=== PATIENT | male | born 1965 | race African-American/Black ===

== ENCOUNTER 2021-04-08 17:19 | Observation (INO) | payer BC, MEDICAID, SELFPAY ==
[2021-04-08 17:21] VITALS: BP 149/104; PULSE 78; RESP 18; TEMP 36; O2SAT 96; BMI 23.9
--- NOTE | 2021-04-08 17:49 | EDS_ITS ---
HPI History of Present Illness Chief Complaint: Substance Abuse Informant: patient Onset/Context/Timing Onset: Today Context: Gradual Onset Timing: Continuous Worsened by: Nothing Relieved by: Nothing Associated Symptoms Associated Symptoms: Negative for vomiting*, diarrhea*, fever*, rash*, seizure, tremor, palpatations, suicidal ideation and homicidal ideation Narrative Narrative: Patient presents requesting detox from alcohol. Patient states he drinks between 9 and 14 24 ounce beers per day. Patient states he drank 2 shots this morning. Patient states he has been drinking for 6 months. Patient states he has never been through detox before. Patient states his last drink was approximately 10 AM today. Patient denies any suicidal or homicidal ideations. Patient does have a history of depression and anxiety. Patient also admits to marijuana use. [facility] Medical History Depression with anxiety Fixation hardware in leg Home Medications bupropion HCl 150 mg PO DAILY 04/08/21 [History Last Taken Unknown] clonazepam [Klonopin] 1 mg PO QHS 04/08/21 [History Last Taken Unknown] sulfamethoxazole-trimethoprim [Bactrim] 1 tab PO BID 04/08/21 [History Last Taken Unknown] Allergy/AdvReac Type Severity Reaction Status Date / Time No Known Allergies Allergy Verified 04/08/21 17:19 Social History Smoking Status: Never smoker ROS ROS ED Constitutional Constitutional ED: Denies chills or fever(s) Eyes Eyes: Denies blurry vision or change in vision ENT ENT ED: Denies rhinorrhea or sore throat Cardiovascular Cardiovascular: Denies chest pain or palpitations Respiratory/Chest Respiratory/Chest: Reports cough; Denies dyspnea Gastrointestinal Gastrointestinal: Denies nausea or vomiting Genitourinary Genitourinary ED: Denies dysuria or hematuria Musculoskeletal Musculoskeletal: Denies back pain or neck pain Integumentary Denies abscess or rash Neurologic Neurologic: Denies headache(s) or weakness Psychiatric Psychiatric: Reports depression; Denies suicidal ideation or suicidal thoughts Allergic/Immunologic Allergic/Immunologic ED: Denies mouth swelling or urticaria EXAM Physical Exam Const Vital Signs: 04/08/21 17:21 04/08/21 18:05 04/08/21 20:42 Temperature 96.8 F L 97.8 F Temperature Source Temporal Temporal Pulse Rate 78 81 89 Respiratory Rate 18 16 18 Blood Pressure 149/104 H 147/78 H Blood Pressure Mean 119 101 Blood Pressure Source Monitor Blood Pressure Position Semi-Fowlers Blood Pressure Location Right Arm Pulse Ox 96 97 97 Oxygen Delivery Method Room Air Room Air Room Air Positive well nourished and well developed General Appearance ED: well developed HEENT Reports moist mucous membranes Neck supple and no JVD Resp normal respiratory effort and clear to auscultation bilaterally Cardio regular rate, regular rhythm and no murmurs GI normal to inspection, nondistended, normoactive bowel sounds and non-tender Palpation: soft Extremity normal to inspection Extremity Narrative: There is external fixation hardware noted in the right lower leg and ankle area. There is no discharge or drainage. There is no erythema or warmth. General Extremety ED: Negative for edema or tenderness General Extremity: Negative for edema Neuro oriented x3, CN's II-XII intact bilaterally and no sensory deficits noted Sensorium / Orientation: alert Motor Exam: strength 5/5 throughout Psych mental status grossly normal Skin no rashes or lesions noted MDM MDM MDM Narrative Medical decision making narrative: CBC was within normal limits. Basic metabolic profile was normal. Urine tox urine was positive for cannabinoids. Serum alcohol level was normal. Case discussed with the hospitalist. He will admit the patient to his service. Patient understands and is agreeable with the plan. All questions were answered. Lab Data Attestation: I reviewed the patient's lab results. Labs: Laboratory Results - last 24 hr 04/08/21 04/08/21 04/08/21 17:45 18:00 18:00 WBC 8.0 RBC 5.43 Hgb 13.7 Hct 42.5 MCV 78.3 L MCH 25.2 L MCHC 32.2 RDW Std Deviation 44.1 H RDW Coeff of Fernando 15.8 H Plt Count 381 MPV 9.1 Immature Gran % (Auto) 0.400 Neut % (Auto) 61.2 Lymph % (Auto) 25.7 [place] % (Auto) 11.9 H Eos % (Auto) 0.1 Baso % (Auto) 0.7 Absolute Neuts (auto) 4.9 Absolute Lymphs (auto) 2.07 Nucleated RBC % 0 Sodium 140 Potassium 3.8 Chloride 105 Carbon Dioxide 28.0 Anion Gap 7 BUN 4 L Creatinine 0.82 Estim Creat Clear Calc 102.98 Est GFR (MDRD) Af Amer 126 Est GFR (MDRD) Non-Af 104 BUN/Creatinine Ratio 4.9 L Glucose 90 Calcium 9.0 Urine Opiates Screen NEGATIVE Urine Methadone Screen NEGATIVE Ur Barbiturates Screen NEGATIVE Ur Phencyclidine Scrn NEGATIVE Ur Amphetamines Screen NEGATIVE U Methamphetamin-MDMA NEGATIVE U Benzodiazepines Scrn NEGATIVE Urine Cocaine Screen NEGATIVE U Cannabinoids Screen POSITIVE H Ur Drug Screen Comment Ethyl Alcohol 04/08/21 18:00 WBC RBC Hgb Hct MCV MCH MCHC RDW Std Deviation RDW Coeff of Fernando Plt Count MPV Immature Gran % (Auto) Neut % (Auto) Lymph % (Auto) [place] % (Auto) Eos % (Auto) Baso % (Auto) Absolute Neuts (auto) Absolute Lymphs (auto) Nucleated RBC % Sodium Potassium Chloride Carbon Dioxide Anion Gap BUN Creatinine Estim Creat Clear Calc Est GFR (MDRD) Af Amer Est GFR (MDRD) Non-Af BUN/Creatinine Ratio Glucose Calcium Urine Opiates Screen Urine Methadone Screen Ur Barbiturates Screen Ur Phencyclidine Scrn Ur Amphetamines Screen U Methamphetamin-MDMA U Benzodiazepines Scrn Urine Cocaine Screen U Cannabinoids Screen Ur Drug Screen Comment Ethyl Alcohol 7.0 Treatment and Re-Evaluation Vital Sign Attestation:: Vital signs were reviewed prior to admission. They are stable. Discharge Plan Dx/Rx/DC Orders Clinical Impression: Alcohol abuse Disposition Disposition: Acute Care Hospital [facility]
[2021-04-08 18:05] VITALS: BP 147/78; PULSE 81; RESP 16; TEMP 36.6; O2SAT 97
[2021-04-08 18:13] LABS: Absolute Lymphocyte Count 2.07 X10^3/uL (0.83-4.51); Absolute Neutrophil Count 4.9 X10^3/uL (2.0-7.7); Basophil# 0.06 X10^3/uL; Basophil% 0.7 % (0-1); Eosinophil# 0.01 X10^3/uL; Eosinophils% 0.1 % (0-5); Hematocrit 42.5 % (40-54); Hemoglobin 13.7 g/dL (13.0-16.5); Lymphocyte # 2.07 X10^3/ul (0.83-4.51); Lymphocyte % 25.7 % (19-41); Mean Corp Hgb Conc 32.2 g/dL (32-36); Mean Corpuscular Hgb 25.2 pg (27.0-32.0); Mean Corpuscular Volume 78.3 fL (80-94); Mean Platelet Vol. 9.1 fl (6.2-12.0); Monocyte# 0.96 X10^3/uL; Monocyte% 11.9 % (0-10); NRBC Flagged by Analyzer 0 % (0-5); Neutrophil # 4.91 X10^3/uL (2.7-7.7); Neutrophil % 61.2 % (47-70); Platelet Count 381 K/mm3 (150-450); RBC Distribution Width CV 15.8 % (11.6-14.6); RBC Distribution Width SD 44.1 fl (35.1-43.9); Red Blood Count 5.43 M/mm3 (4.6-6.2)
[2021-04-08 18:29] LABS: Anion Gap 7 (5-15); BUN 4 mg/dL (7-18); BUN/Creat Ratio 4.9 RATIO (10-20); Chloride 105 mmol/L (98-107); Creatinine, Serum 0.82 mg/dL (0.70-1.30); EST Glomerular Filtration Rate 104 mL/min (>60); Est Glom Filt Rate - Afr Amer 126 mL/min (>60); Estimated Creatinine Clearance 102.98 ml/min; Glucose 90 mg/dL (74-106); Potassium 3.8 mmol/L (3.5-5.1); Sodium Level 140 mmol/L (136-145)
[2021-04-08 18:31] LABS: Amphetamine Urine VISTA NEGATIVE (<1000 ng/mL); Barbiturate Urine VISTA NEGATIVE (< 200 ng/mL); Benzodiazepine Urine VISTA NEGATIVE (< 200 ng/mL); Cocaine Urine VISTA NEGATIVE (< 300 ng/mL); Ecstacy Urine VISTA NEGATIVE (< 500 ng/mL); Methadone Urine VISTA NEGATIVE (< 300 ng/mL); PCP Urine VISTA NEGATIVE (< 25 ng/mL); THC Urine VISTA POSITIVE (< 50 ng/mL); Vista UDS pH Range 6
--- NOTE | 2021-04-08 19:50 | CM.ED ---
SOCIAL WORK Referral Source: Dr. Lind Reason for Consult: Substance Abuse- requesting detox from alcohol Patient presents to ER for detox from alcohol. Patient reports drinks 9-14 24oz beers/day. Patient reports last drink this morning, 2 shots and an Old Turkish. Patient reports has met with [facility] in the past. Patient hoping to get into [facility]. Patient states gave up apartment a few days ago due to the inability to do the 20 steps to get into apartment. Patient reports is currently homeless. Patient reports history of marijuana and cocaine 3 days ago. Patient states while in the hospital would like to get the COVID-[address] Lind updated on the above. Plan: Hospitalist notified Syl Gibson, APPLIED MATHEMATICIAN, CATALYST UNIT OPERATOR
--- NOTE | 2021-04-08 20:17 | HP.PCM.HOS_ITS ---
HPI - General General Date of Admission: 04/08/21 HPI Narrative REZA MALIN, is a 55 M with a significant history of depression;; tobacco abuse; marijuana abuse; cocaine abuse; alcoholism and wheel chair bound who presents to the emergency department with a desire for alcohol detoxification. Reportedly he has been drinking for about 4 years. He drinks about 9 of 24 ounces of beer per day. Also he drinks some butter scotch, wine and gin. Last time he drank was several hours before presentation. At that time he drank 2 of butter wine scotch and old maori. At least he has been to to centers for rehabilitation. [facility] Medical History Depression with anxiety Fixation hardware in leg Sleep apnea Vision loss of right eye Home Medications bupropion HCl 150 mg PO DAILY 04/08/21 [History Last Taken Unknown] clonazepam [Klonopin] 1 mg PO QHS 04/08/21 [History Last Taken Unknown] sulfamethoxazole-trimethoprim [Bactrim] 1 tab PO BID 04/08/21 [History Last Taken Unknown] Allergy/AdvReac Type Severity Reaction Status Date / Time No Known Allergies Allergy Verified 04/08/21 17:19 Surgical History History of appendectomy History of cholecystectomy Social History (Updated 04/09/21 @ 02:[address] Jorge Mcallister MD) Smoking Status: Current every day smoker substance use type: marijuana and crack/cocaine ROS ROS Narrative Constitutional: Denies fever, chills, fatigue, anorexia and change in weight Eyes: Denies blurry vision, change in eye color, change in vision, discharge from eye(s), double vision, erythema, eye pain, loss of vision or other HEENT: Denies abnormal hearing, dysphagia, ear pain, epistaxis, headache(s), hearing loss, nasal congestion, nasal discharge, post nasal drip, sinus pressu re, sore throat or other Cardiovascular: Denies chest pain or palpitations. Denies dyspnea on exertion, orthopnea and paroxysmal nocturnal dyspnea Respiratory/Chest: Denies cough, excessive phlegm production, shortness of breath with exertion and wheezing Gastrointestinal: Denies abdominal pain, coffee ground emesis, constipation, diarrhea, dyspepsia, hematemesis, hematochezia, loose stools, melena, nausea, vomiting or other Genitourinary: Denies burning urination, difficulty urinating, dysuria, hematuria, nocturia, urinary frequency, urinary hesitancy, urinary incontinence, urinary urgency or other Musculoskeletal: Wheelchair-bound. Denies back pain, myalgias, neck pain or other Neurologic: Denies abnormal gait, abnormal speech, confusion, disequilibrium, dizziness, focal weakness, headache(s), numbness, paresthesias, seizure-like activity, seizures, syncope, tingling, tremor(s) or other Psychiatric: Denies anxiety, depression, homicidal ideation, suicidal ideation or other Endocrinology: Denies change in body appearance, cold intolerance, excessive sweating, heat intolerance, polydipsia, polyuria or other Hematologic/Lymphatic: Denies anemia, easy bleeding, easy bruising, lymphadenopathy or other Integumentary: Denies rashes Allergic/Immunologic: Denies rhinitis, hives, eczema, asthma or other Vital Signs Vital Signs Vital Signs: 04/08/21 17:21 04/08/21 18:05 Temperature 96.8 F L 97.8 F Temperature Source Temporal Temporal Pulse Rate 78 81 Respiratory Rate 18 16 Blood Pressure 149/104 H 147/78 H Blood Pressure Mean 119 101 Blood Pressure Source Monitor Blood Pressure Position Semi-Fowlers Blood Pressure Location Right Arm Pulse Ox 96 97 Oxygen Delivery Method Room Air Room Air Weight Weight: 73.482 kg Body Mass Index (BMI) 23.9 Physical Exam Narrative Physical exam: General: Well-nourished, well-developed. Head: Normocephalic, atraumatic, no tenderness Eyes: PERRLA, EOMI ENT, no trauma, moist mucous membranes, no rhinorrhea. Poor dentition. Neck: Nontender, full range of motion, no spinal tenderness, deformities, step- off CVS: Regular rate and rhythm. S1-S2 present. No murmur, gallop or rub. Respiratory : clear to auscultation bilaterally, chest wall nontender, no wheezing Abdomen: Soft, nontender, nondistended, normal bowel sounds, no masses : Deferred Back: Nontender, no CVA tenderness, no midline spinal tenderness, deformities, step-offs Extremities: Right leg in Hallo brace. Strength in right leg 4 out of 5. Strength in left leg 5 out of 5. Skin: Normal color, no trauma, abrasions Neuro: Alert, oriented, cranial nerves II through XII grossly intact. Psychiatry: Normal mood. Normal affect. Not depressed. Not anxious. Results Lab / Micro Data Result Diagrams: 04/08/21 18:00 04/08/21 18:00 Labs: Laboratory Results - last 24 hr 04/08/21 17:45: Urine Opiates Screen NEGATIVE, Urine Methadone Screen NEGATIVE, Ur Barbiturates Screen NEGATIVE, Ur Phencyclidine Scrn NEGATIVE, Ur Amphetamines Screen NEGATIVE, U Methamphetamin-MDMA NEGATIVE, U Benzodiazepines Scrn NEGATIVE, Urine Cocaine Screen NEGATIVE, U Cannabinoids Screen POSITIVE H, Ur Drug Screen Comment 04/08/21 18:00: WBC 8.0, RBC 5.43, Hgb 13.7, Hct 42.5, MCV 78.3 L, MCH 25.2 L, MCHC 32.2, RDW Std Deviation 44.1 H, RDW Coeff of Fernando 15.8 H, Plt Count 381, MPV 9.1, Immature Gran % (Auto) 0.400, Neut % (Auto) 61.2, Lymph % (Auto) 25.7, [place] % (Auto) 11.9 H, Eos % (Auto) 0.1, Baso % (Auto) 0.7, Absolute Neuts (auto) 4.9, Absolute Lymphs (auto) 2.07, Nucleated RBC % 0 04/08/21 18:00: Sodium 140, Potassium 3.8, Chloride 105, Carbon Dioxide 28.0, Anion Gap 7, BUN 4 L, Creatinine 0.82, Estim Creat Clear Calc 102.98, Est GFR (MDRD) Af Amer 126, Est GFR (MDRD) Non-Af 104, BUN/Creatinine Ratio 4.9 L, Glucose 90, Calcium 9.0 04/08/21 18:00: Ethyl Alcohol 7.0 Assessment & Plan Assessment/Plan (1) Alcohol abuse: (2) Cocaine abuse: (3) Marijuana abuse: (4) Depression: QUALIFIERS: Active/Remission status: currently active Depression Type: major depressive disorder Major depression episode severity: unspecified Major depression recurrence: unspecified whether recurrent Qualified Code(s): F32.9 - Major depressive disorder, single episode, unspecified PLAN: Alcohol dependence and desire for detoxification Patient be started on phenobarbital and other adjunctive medications: Gabapentin as needed; dicyclomine as needed; Vistaril as needed; Imodium as needed; trazodone as needed; Zofran as needed; scheduled thiamine; and schedule folic acid. Monitor CIWA score Tobacco abuse Counseled Nicotine patch prescribed. Cocaine and marijuana abuse Counseled. Chronic infection of right leg Bactrim continued. Depression Bupropion continued. DVT prophylaxis Subcutaneous Lovenox ordered Charges/Coding Visit Charges Inpatient E&M: 79560 Init Hosp L2
[2021-04-08 20:42] VITALS: PULSE 89; RESP 18; O2SAT 97
--- NOTE | 2021-04-08 21:05 | PCS.PANDOC ---
PANDEMIC DOCUMENTATION INITIATED: Date: 12/13/2020 Time: 190
[2021-04-08 21:12] VITALS: BP 147/78; PULSE 89; RESP 18; TEMP 36.6; O2SAT 97
[2021-04-08 21:36] VITALS: BMI 23.1
--- NOTE | 2021-04-08 21:36 | PCS.PANDOC ---
PANDEMIC DOCUMENTATION INITIATED: Date: 04/08/21 Time: 2135
[2021-04-08 21:41] VITALS: BP 150/84; PULSE 76; RESP 18; TEMP 36.6; O2SAT 97
[2021-04-08] MEDS: Phenobarbital 32.4 MG Tablet PO (22:36)
[2021-04-09 02:38] VITALS: BP 144/97; PULSE 66; RESP 16; TEMP 36.9; O2SAT 100
[2021-04-09] MEDS: Phenobarbital 32.4 MG Tablet PO ×6 (02:43→22:41)
[2021-04-09 06:00] VITALS: BP 147/93; PULSE 74; RESP 16; TEMP 37; O2SAT 98
[2021-04-09 10:00] VITALS: BP 138/95; PULSE 76; RESP 18; TEMP 36.6; O2SAT 99
[2021-04-09] MEDS: Smz/Tmp Ds Tablet 1 TABLET PO ×2 (10:04→18:11)
[2021-04-09] MEDS: Folic Acid 1 MG Tablet PO (10:04)
[2021-04-09] MEDS: Enoxaparin 40 MG/0.4 ML Syringe SC (10:04)
[2021-04-09] MEDS: Thiamine Hydrochloride 100 MG Tablet PO (10:04)
--- NOTE | 2021-04-09 11:02 | NURSING ---
sherif valles missing from pt stock and none in avccudose
--- NOTE | 2021-04-09 12:13 | PN.HOSP_ITS ---
Documented by User: Raghavendra LEROY 04/09/21 12:23 Subjective Subjective Patient is a 55-year-old male comfortably resting in bed, alert and orient x3. Patient denies any seizure-like activity, tremors or auditory/visual hallucinations. Denies development of any new symptoms overnight. Does not appear in acute distress. Objective Data Objective Data Vital Signs: Vital Signs Temp Pulse Resp BP Pulse Ox 97.9 F 76 18 138/95 H 99 04/09/21 10:00 04/09/21 10:00 04/09/21 10:00 04/09/21 10:00 04/09/21 10:00 Oxygen Delivery Method Room Air Weight: 156 lb 1.396 oz Body Mass Index (BMI) 23.1 Intake & Output: Intake and Output for Last 24 Hours 04/07/21 04/08/21 04/09/21 23:59 23:59 23:59 Intake Total 1000 / 1000 Balance 1000 / 1000 Lab / Micro Data Result Diagrams: 04/08/21 18:00 04/08/21 18:00 Labs: Laboratory Results - last 24 hr 04/08/21 17:45: Urine Opiates Screen NEGATIVE, Urine Methadone Screen NEGATIVE, Ur Barbiturates Screen NEGATIVE, Ur Phencyclidine Scrn NEGATIVE, Ur Amphetamines Screen NEGATIVE, U Methamphetamin-MDMA NEGATIVE, U Benzodiazepines Scrn NEGATIVE, Urine Cocaine Screen NEGATIVE, U Cannabinoids Screen POSITIVE H, Ur Drug Screen Comment 04/08/21 18:00: WBC 8.0, RBC 5.43, Hgb 13.7, Hct 42.5, MCV 78.3 L, MCH 25.2 L, MCHC 32.2, RDW Std Deviation 44.1 H, RDW Coeff of Fernando 15.8 H, Plt Count 381, MPV 9.1, Immature Gran % (Auto) 0.400, Neut % (Auto) 61.2, Lymph % (Auto) 25.7, [place] % (Auto) 11.9 H, Eos % (Auto) 0.1, Baso % (Auto) 0.7, Absolute Neuts (auto) 4.9, Absolute Lymphs (auto) 2.07, Nucleated RBC % 0 04/08/21 18:00: Sodium 140, Potassium 3.8, Chloride 105, Carbon Dioxide 28.0, Anion Gap 7, BUN 4 L, Creatinine 0.82, Estim Creat Clear Calc 102.98, Est GFR (MDRD) Af Amer 126, Est GFR (MDRD) Non-Af 104, BUN/Creatinine Ratio 4.9 L, Glucose 90, Calcium 9.0 04/08/21 18:00: Ethyl Alcohol 7.0 Physical Exam Const alert, oriented x3 and no apparent distress HEENT head/scalp atraumatic and moist oral mucous membranes Head and Scalp: normocephalic Eyes PERRL, EOMs intact bilaterally and conjunctivae normal Neck no lymphadenopathy, supple and no JVD Resp normal respiratory effort, no retractions, no use of accessory muscles and clear to auscultation bilaterally Cardio regular rate, regular rhythm, no murmurs and no JVD GI normal to inspection, nondistended, normoactive bowel sounds, soft to palpation and non-tender Extremity normal to inspection, full ROM and no clubbing, cyanosis or edema Extremity Narrative: RLE in halo brace. Skin no rashes or lesions noted, no wounds, skin turgor normal and no jaundice Neuro CN's II-XII intact bilaterally Psych affect normal Assessment & Plan Assessment/Plan (1) Alcohol abuse: (2) Cocaine abuse: (3) Depression: QUALIFIERS: Active/Remission status: currently active Depression Type: major depressive disorder Major depression episode severity: unspecified Major depression recurrence: unspecified whether recurrent Qualified Code(s): F32.9 - Major depressive disorder, single episode, unspecified PLAN: Day 1 Discharge planning: Patient to discharge home when medically ready 1) alcohol abuse/medical stabilization for detoxification Patient status is stable, patient does not complain of nor does he display any signs of withdrawal to include tremors, visual hallucinations or seizures. Most recent CIWA score is 0. We will continue patient on phenobarbital and other as needed medications. 2) tobacco abuse Cessation recommended, continue nicotine patch. 3) Chronic infection of right leg Halo brace on RLE status post fall with fracture. Vital signs stable and patient is afebrile. CBC is unremarkable. Continue Bactrim. 4) depression Continue bupropion. DVT prophylaxis - Lovenox Patient seen by Raghavendra Duke PA-C, under the supervision of Dr. Tom. Documented by User: Dr. Jovan Tom DO 04/09/21 16:17 Objective Data Lab / Micro Data Result Diagrams: 04/08/21 18:00 04/08/21 18:00 Charges/Coding Addendum Addendum: Patient was seen and examined independently of Raghavendra Duke, he compl ains of a cough, he denies any tremor or anxiety at this time. On examination he appeared in good health and spirits. Vital signs as documented. Skin warm and dry and without overt rashes. Neck without JVD, neck was supple, trachea midline, thyroid was normal. Lungs clear bilaterally, normal air movement was noted. Heart exam notable for regular rhythm, normal sounds and absence of murmurs, rubs or gallops. Abdomen unremarkable and without evidence of organomegaly, masses, or abdominal aortic enlargement. Bowel sounds are present, abdomen is not distended. Extremities-there is an external fixator device noted over the patient's right lower leg. Neuro: Cranial nerves II through XII are grossly intact, no focal motor deficits were noted, sensation to light touch and pinprick intact, motor exam 5/5 throughout. Psych: Patient is alert and oriented x3, he does not appear anxious or depressed, he does not appear agitated. I have reviewed Raghavendra Duke's progress note including his medical assessment and plan of care and endorse it. Visit Charges Inpatient E&M: 68726 Subs Hosp L2
[2021-04-09] MEDS: buPROPion (SR) 150 MG Tablet.SA PO (14:18)
[2021-04-09 14:19] VITALS: BP 137/74; PULSE 72; RESP 18; O2SAT 100
[2021-04-09 18:08] VITALS: BP 139/77; PULSE 74; RESP 18; TEMP 36.6; O2SAT 98
[2021-04-09] MEDS: Acetaminophen 325 MG Tablet 650 MG PO (18:11)
[2021-04-09] MEDS: guaiFENesin Dm 10 ML UDC PO (18:11)
[2021-04-09 23:42] VITALS: BP 130/79; PULSE 77; RESP 18; TEMP 37.2; O2SAT 97
[2021-04-10] MEDS: guaiFENesin Dm 10 ML UDC PO ×3 (00:52→23:02)
[2021-04-10] MEDS: Acetaminophen 325 MG Tablet 650 MG PO ×4 (00:53→18:18)
[2021-04-10] MEDS: Phenobarbital 32.4 MG Tablet PO ×6 (03:10→23:02)
[2021-04-10 03:14] VITALS: BP 138/93; PULSE 64; RESP 16; TEMP 36.5; O2SAT 98
[2021-04-10 10:32] VITALS: BP 127/96; PULSE 59; RESP 18; TEMP 36.6; O2SAT 97
[2021-04-10] MEDS: buPROPion (SR) 150 MG Tablet.SA PO (10:35)
[2021-04-10] MEDS: Thiamine Hydrochloride 100 MG Tablet PO (10:35)
[2021-04-10] MEDS: Smz/Tmp Ds Tablet 1 TABLET PO ×2 (10:35→18:18)
[2021-04-10] MEDS: Folic Acid 1 MG Tablet PO (10:35)
[2021-04-10] MEDS: Enoxaparin 40 MG/0.4 ML Syringe SC (10:36)
--- NOTE | 2021-04-10 10:43 | PN.HOSP_ITS ---
Documented by User: Raghavendra LEROY 04/10/21 10:49 Subjective Subjective Patient is a 55-year-old male comfortably resting in bed, alert and orient x3. Patient denies development of any alcohol withdrawal symptoms to include visual hallucinations, tremors or seizure. Does not appear in acute distress. Objective Data Objective Data Vital Signs: Vital Signs Temp Pulse Resp BP Pulse Ox 97.9 F 59 L 18 127/96 H 97 04/10/21 10:32 04/10/21 10:32 04/10/21 10:32 04/10/21 10:32 04/10/21 10:32 Oxygen Delivery Method Room Air Weight: 156 lb 1.396 oz Body Mass Index (BMI) 23.1 Intake & Output: Intake and Output for Last 24 Hours 04/08/21 04/09/21 04/10/21 23:59 23:59 23:59 Intake Total 1000 / 1000 Balance 1000 / 1000 Lab / Micro Data Result Diagrams: 04/08/21 18:00 04/08/21 18:00 Physical Exam Const alert, oriented x3 and no apparent distress HEENT head/scalp atraumatic and moist oral mucous membranes Head and Scalp: normocephalic Eyes PERRL, EOMs intact bilaterally and conjunctivae normal Neck no lymphadenopathy, supple and no JVD Resp normal respiratory effort, no retractions, no use of accessory muscles and clear to auscultation bilaterally Cardio regular rate, regular rhythm, no murmurs and no JVD GI normal to inspection, nondistended, normoactive bowel sounds, soft to palpation and non-tender Extremity normal to inspection, full ROM and no clubbing, cyanosis or edema Skin no rashes or lesions noted, no wounds, skin turgor normal and no jaundice Neuro CN's II-XII intact bilaterally Psych affect normal Assessment & Plan Assessment/Plan (1) Alcohol abuse: PLAN: Day 2 Discharge planning: Patient to discharge home when medically ready 1) alcohol abuse/medical stabilization for detoxification Patient status is stable, patient does not complain of nor does he display any signs of withdrawal to include tremors, visual hallucinations or seizures. Most recent CIWA score is 2. We will continue patient on phenobarbital and other as needed medications. 2) tobacco abuse Cessation recommended, continue nicotine patch. 3) Chronic infection of right leg Halo brace on RLE status post fall with fracture. Vital signs stable and patient is afebrile. CBC is unremarkable. Continue Bactrim. 4) depression Continue bupropion. DVT prophylaxis - Lovenox Patient seen by Raghavendra Duke PA-C, under the supervision of Dr. Tom. Documented by User: Dr. Jovan Tom, DO 04/10/21 17:06 Objective Data Lab / Micro Data Result Diagrams: 04/08/21 18:00 04/08/21 18:00 Charges/Coding Addendum Addendum: Patient was seen and examined today independently of Raghavendra Duke, patient does not complain of any anxiety, tremors, muscle pain, or abdominal cramping. On examination he appeared in good health and spirits. Vital signs as d ocumented. Skin warm and dry and without overt rashes. Neck without JVD, neck was supple, trachea midline, thyroid was normal. Lungs clear bilaterally, normal air movement was noted. Heart exam notable for regular rhythm, normal sounds and absence of murmurs, rubs or gallops. Abdomen unremarkable and without evidence of organomegaly, masses, or abdominal aortic enlargement. Bowel sounds are present, abdomen is not distended. Extremities nonedematous, no cyanosis was noted, no clubbing was noted. There is an external fixator present over the patient's right lower leg. Neuro: Cranial nerves II through XII are grossly intact, no focal motor deficits were noted, sensation to light touch and pinprick intact, motor exam 5/5 throughout. Psych: Patient is alert and oriented x3, he does not appear anxious or depressed, he does not appear agitated. I have reviewed Raghavendra Duke's progress note including his medical assessment and plan of care and endorse it. Visit Charges Inpatient E&M: 99472 Subs Hosp L2
--- NOTE | 2021-04-10 11:25 | ADDICTION ---
This policy writer typist met with PT to conduct ASAM, MSE, AUDIT, DUDIT assessments and to plan for d/c. PT A+Ox4 and participated actively. All assessments completed, faxed to [facility] and placed in PT's chart. PT plans to f/u with [facility] for residential treatment and follow-up counseling services if approved. PT did indicate a need for transportation post d/c from [facility]. [facility] will transport once approved.
[2021-04-10 14:01] VITALS: BP 128/73; PULSE 71; RESP 16; TEMP 36.8; O2SAT 98
[2021-04-10 18:22] VITALS: BP 122/74; PULSE 72; RESP 18; TEMP 36.5; O2SAT 98
--- NOTE | 2021-04-10 21:00 | NURSING ---
Received call from [facility]. It was requested that case management reach out to [facility] tomorrow, 04/11/21, regarding bed availability. (Alex @ [phone])
[2021-04-10 23:35] VITALS: BP 125/75; PULSE 67; RESP 18; TEMP 36.6; O2SAT 98
[2021-04-11] MEDS: Acetaminophen 325 MG Tablet 650 MG PO ×3 (00:06→13:15)
[2021-04-11] MEDS: Phenobarbital 32.4 MG Tablet PO ×4 (02:23→17:52)
[2021-04-11 05:00] VITALS: BP 129/82; PULSE 65; RESP 16; TEMP 36.3; O2SAT 96
[2021-04-11 07:32] VITALS: BP 122/82; PULSE 61; RESP 16; TEMP 36.6; O2SAT 99
--- NOTE | 2021-04-11 09:42 | PCM.DC ---
Discharge Instructions Diet Discharge Diet: No restrictions Activity Discharge Activity: Return to Normal Activity Weight Bearing Status: Weight bearing as tolerated Dressing / Incision Call your doctor if you observe: Fever of 101 or Higher, Numbness or Tingling, Shortness of breath, Dizziness, Chest pain, Increased palpitations (irregular heartbeat) and Calf discomfort Follow Up Care Please Follow Up With: Primary care provider When: Within the next two weeks. Test Results: Test results from this visit will be discussed in further detail at your follow-up appointment, if applicable. Discharge Plan Admission Admit Date/Time: 04/08/21 20:31 Primary Reason for Your Visit: Alcohol Detox Attending Provider: Marie Martin Discharge Orders/Prescriptions Prescriptions: Continued bupropion HCl 150 mg Tablet Sustained-Release 12 Hr 150 mg PO DAILY RF: 0 sulfamethoxazole-trimethoprim [Bactrim] 400-80 mg Tablet 1 tab PO BID RF: 0 clonazepam [Klonopin] 1 mg Tablet 1 mg PO QHS RF: 0 Referrals / Follow Up: ADEEL BOSS [Other] - Within 2 Weeks ADEEL BOSS [Other] Disposition Disposition (needs filled in before D/C Order can be placed): Home, Self Care
[2021-04-11] MEDS: Thiamine Hydrochloride 100 MG Tablet PO (10:13)
[2021-04-11] MEDS: buPROPion (SR) 150 MG Tablet.SA PO (10:13)
[2021-04-11] MEDS: Folic Acid 1 MG Tablet PO (10:13)
[2021-04-11] MEDS: Enoxaparin 40 MG/0.4 ML Syringe SC (10:14)
--- NOTE | 2021-04-11 10:18 | ADDICTION ---
PT has been approved for [facility] in [place]. They will provide transportation tomorrow morning at 10am. They patrick call [employer] [facility] once arrived.
--- NOTE | 2021-04-11 11:21 | PN.HOSP_ITS ---
Documented by User: Raghavendra LEROY 04/11/21 11:27 Subjective Subjective Patient is a 55-year-old male comfortably resting in bed, alert and orient x3. Patient denies development of any alcohol withdrawal symptoms to include visual hallucinations, tremors or seizure. Does not appear in acute distress. Objective Data Objective Data Vital Signs: Vital Signs Temp Pulse Resp BP Pulse Ox 97.9 F 61 16 122/82 H 99 04/11/21 07:32 04/11/21 07:32 04/11/21 07:32 04/11/21 07:32 04/11/21 07:32 Oxygen Delivery Method Room Air Weight: 156 lb 1.396 oz Body Mass Index (BMI) 23.1 Intake & Output: Intake and Output for Last 24 Hours 04/09/21 04/10/21 04/11/21 23:59 23:59 23:59 Intake Total 1000 / 1000 Balance 1000 / 1000 Lab / Micro Data Result Diagrams: 04/08/21 18:00 04/08/21 18:00 Physical Exam Const alert, oriented x3 and no apparent distress HEENT head/scalp atraumatic, moist oral mucous membranes and oropharynx normal Head and Scalp: normocephalic Eyes PERRL, EOMs intact bilaterally and conjunctivae normal Neck no lymphadenopathy, supple and no JVD Resp normal respiratory effort, no retractions, no use of accessory muscles and clear to auscultation bilaterally Cardio regular rate, regular rhythm, no murmurs and no JVD GI normal to inspection, nondistended, normoactive bowel sounds, soft to palpation and non-tender Extremity normal to inspection, full ROM and no clubbing, cyanosis or edema Skin no rashes or lesions noted, no wounds and skin turgor normal Neuro CN's II-XII intact bilaterally Psych affect normal Assessment & Plan Assessment/Plan (1) Alcohol abuse: PLAN: Day 3 Discharge planning: Patient was supposed to discharge today, however already has inpatient addiction services scheduled at [facility] for 04/12. Patient will be discharged tomorrow. 1) alcohol abuse/medical stabilization for detoxification Patient status is stable, patient does not complain of nor does he display any signs of withdrawal to include tremors, visual hallucinations or seizures. Most recent CIWA score is 0. We will continue patient on phenobarbital and other as needed medications. 2) tobacco abuse Cessation recommended, continue nicotine patch. 3) Chronic infection of right leg Halo brace on RLE status post fall with fracture. Vital signs stable and patient is afebrile. CBC is unremarkable. Continue Bactrim. 4) depression Continue bupropion. DVT prophylaxis - Lovenox Patient seen by Raghavendra Duke PA-C, under the supervision of Dr. Martin. Documented by User: Dr. Marie Martin MD 04/11/21 13:51 Objective Data Lab / Micro Data Result Diagrams: 04/08/21 18:00 04/08/21 18:00 Charges/Coding Addendum Addendum: Patient seen by Raghavendra Duke PA-C under my supervision Patient seen and examined. He has no complaints today and review of systems otherwise negative. Plan was to discharge patient today but his rehab facility will not have a bed for him until tomorrow. He has remained hemodynamically stable. O/E: Const alert, oriented x3 and no apparent distress HEENT head/scalp atraumatic, moist oral mucous membranes and oropharynx normal Head and Scalp: normocephalic Eyes PERRL, EOMs intact bilaterally and conjunctivae normal Neck no lymphadenopathy, supple and no JVD Resp normal respiratory effort, no retractions, no use of accessory muscles and clear to auscultation bilaterally Cardio regular rate, regular rhythm, no murmurs and no JVD GI normal to inspection, nondistended, normoactive bowel sounds, soft to palpation and non-tender Extremity external fixator over RLE Skin no rashes or lesions noted, no wounds and skin turgor normal Neuro CN's II-XII intact bilaterally Psych affect normal Plan is to keep patient until tomorrow he can be discharged to his substance abuse rehab facility. Patient not having any symptoms of withdrawal. Rest as per Raghavendra Duke PA-C's note which I reviewed and endorsed. Visit Charges Inpatient E&M: 61332 Subs Hosp L2
[2021-04-11] MEDS: hydrOXYzine PAM 25 MG Capsule 50 MG PO ×2 (11:32→22:09)
[2021-04-11] MEDS: Smz/Tmp Ds Tablet 1 TABLET PO ×2 (13:16→22:09)
[2021-04-11 14:28] VITALS: BP 119/83; PULSE 65; RESP 20; TEMP 36.8; O2SAT 100
--- NOTE | 2021-04-11 16:12 | CHAPLAIN ---
Type of Pastoral Visit _x__ Initial Visit ___ Follow-up Visit ___ On-call Visit ___ General Patient Visit ___ Spiritual Assessment ___ Family Conference ___ Bereavement ___ Rapid Response ___ Code Blue ___ Other (describe below) Pastoral Care Referral From _x__ Patient ___ Family ___ Nurse ___ Physician ___ Form Grader ___ Scientologist ___ Other (describe below) Sacrament/Intervention _x__ Active listening ___ Anointing ___ Muslim ___ Bereavement ___ Communion _x__ [place] exploration ___ _x__ Life review _x__ Prayer ___ Reconciliation ___ Sacrament of Sick _x__ Supportive presence ___ Wedding ___ Other (describe below) Pastoral Comments patient is very eager to talk and state his desire for life change and for spiritual help; pt talks about life and the hard times and the choices he made; pt has lost his brother and father before they were his age so pt I'm aware how arlet I am; pt requests support and prayer; will follow up as able
[2021-04-11 17:44] VITALS: BP 117/84; PULSE 73; RESP 16; TEMP 36.6; O2SAT 99
[2021-04-11] MEDS: guaiFENesin Dm 10 ML UDC PO (17:52)
[2021-04-11 20:47] VITALS: BP 131/87; PULSE 80; RESP 16; TEMP 36.4; O2SAT 97
[2021-04-11 21:56] VITALS: BP 137/80; PULSE 65; RESP 18; TEMP 36.5; O2SAT 100
[2021-04-12] MEDS: Phenobarbital 32.4 MG Tablet PO ×2 (00:38→06:03)
[2021-04-12 03:58] VITALS: BP 108/79; PULSE 65; RESP 18; TEMP 36.6; O2SAT 99
[2021-04-12] MEDS: Acetaminophen 325 MG Tablet 650 MG PO ×2 (04:11→09:57)
[2021-04-12 07:28] VITALS: BP 121/76; PULSE 58; RESP 18; TEMP 36.2; O2SAT 100
[2021-04-12] MEDS: Smz/Tmp Ds Tablet 1 TABLET PO (09:48)
[2021-04-12] MEDS: buPROPion (SR) 150 MG Tablet.SA PO (09:49)
[2021-04-12] MEDS: Folic Acid 1 MG Tablet PO (09:49)
[2021-04-12] MEDS: Thiamine Hydrochloride 100 MG Tablet PO (09:49)
--- NOTE | 2021-04-12 13:01 | DS.PCM_ITS ---
Documented by User: Raghavendra LEROY 04/12/21 13:08 Providers Date of Admission: 04/08/21 Primary Care Physician: ADEEL BOSS Reason For Visit: ALCOHOL DETOX Diagnosis Discharge Diagnosis (1) Alcohol abuse: Status: Acute Code(s): F10.10 - Alcohol abuse, uncomplicated Medications at Discharge Home Medications bupropion HCl 150 mg PO DAILY 04/08/21 clonazepam [Klonopin] 1 mg PO QHS 04/08/21 sulfamethoxazole-trimethoprim [Bactrim] 1 tab PO BID 04/08/21 Hospital Course Summary of Care Provided Minutes Spent on Discharge: 35 Hospital Course: Disposition: Patient to discharge to [facility] for follow alcohol detox. 1) alcohol abuse/medical stabilization for detoxification Patient status is stable, patient does not complain of nor does he display any signs of withdrawal to include tremors, visual hallucinations or seizures. Most recent CIWA score is 0. Patient withdrawal was managed on phenobarbital taper while admitted, patient was also supplemented with thiamine and folic acid supplementation and withdrawal symptoms were controlled on as needed medications while admitted. Plan for following addiction medicine counseling as above. 2) tobacco abuse Cessation recommended. 3) Chronic infection of right leg Halo brace on RLE status post fall with fracture. Vital signs stable and patient is afebrile. CBC is unremarkable. Continue Bactrim. 4) depression Continue bupropion. Patient seen by Raghavendra Duke PA-C, under the supervision of Dr. Martin. Physical Exam Const alert, oriented x3 and no apparent distress HEENT normocephalic, head/scalp atraumatic and hearing grossly normal bilaterally Eyes PERRL, EOMs intact bilaterally and conjunctivae normal Neck no lymphadenopathy, supple and no JVD Resp normal respiratory effort, no retractions and no use of accessory muscles Cardio regular rate, regular rhythm, no murmurs and no JVD GI normal to inspection, nondistended, normoactive bowel sounds, soft to palpation and non-tender Extremity normal to inspection, full ROM and no clubbing, cyanosis or edema Skin no rashes or lesions noted, no wounds and skin turgor normal Neuro CN's II-XII intact bilaterally Psych affect normal Weight / BMI Weight Weight: 156 lb 1.396 oz Body Mass Index (BMI) 23.1 ABG / Lab / Microbiology Data Result Diagrams: 04/08/21 18:00 04/08/21 18:00 D/C Instructions Discharge Diet: No restrictions Weight Bearing Status: Weight bearing as tolerated Call your doctor if you observe: Fever of 101 or Higher, Numbness or Tingling, Shortness of breath, Dizziness, Chest pain, Increased palpitations (irregular heartbeat) and Calf discomfort Please Follow Up With: Primary care provider When: Within the next two weeks. Meaningful Use Info Meaningful Use Diagnoses (Choose all that apply): None applicable Discharge Plan Admission Admit Date/Time: 04/08/21 20:31 Primary Reason for Your Visit: Alcohol Detox Attending Provider: Marie Martin Discharge Orders/Prescriptions Prescriptions: Continued bupropion HCl 150 mg Tablet Sustained-Release 12 Hr 150 mg PO DAILY RF: 0 sulfamethoxazole-trimethoprim [Bactrim] 400-80 mg Tablet 1 tab PO BID RF: 0 clonazepam [Klonopin] 1 mg Tablet 1 mg PO QHS RF: 0 Referrals / Follow Up: ADEEL BOSS [Other] - Within 2 Weeks Disposition Disposition (needs filled in before D/C Order can be placed): Home, Self Care Documented by User: Dr. Marie Martin MD 04/12/21 16:44 Providers Date of Admission: 04/08/21 Reason For Visit: ALCOHOL DETOX Medications at Discharge Home Medications bupropion HCl 150 mg PO DAILY 04/08/21 clonazepam [Klonopin] 1 mg PO QHS 04/08/21 sulfamethoxazole-trimethoprim [Bactrim] 1 tab PO BID 04/08/21 ABG / Lab / Microbiology Data Result Diagrams: 04/08/21 18:00 04/08/21 18:00 Discharge Plan Admission Admit Date/Time: 04/08/21 20:31 Primary Reason for Your Visit: Alcohol Detox Attending Provider: Marie Martin Discharge Orders/Prescriptions Prescriptions: Continued bupropion HCl 150 mg Tablet Sustained-Release 12 Hr 150 mg PO DAILY RF: 0 sulfamethoxazole-trimethoprim [Bactrim] 400-80 mg Tablet 1 tab PO BID RF: 0 clonazepam [Klonopin] 1 mg Tablet 1 mg PO QHS RF: 0 Referrals / Follow Up: ADEEL BOSS [Other] - Within 2 Weeks Disposition Disposition (needs filled in before D/C Order can be placed): Home, Self Care Charges/Coding Addendum Addendum: Patient seen by Raghavendra Duke PA-C under my supervision Patient is a 55-year-old male patient with a past medical history as outlined was admitted through the ED on 04/08/2021 for acute alcohol detox. He had drank several hours before admission. He was admitted and managed for acute alcohol withdrawal for detoxification. He was put on alcohol withdrawal protocol with phenobarbital and tolerated the detox process. Patient was discharged to rehab facility in [place] on 04/12/2021. Patient seen and examined prior to discharge. He had no complaints and review of systems otherwise negative. Labs and vitals reviewed. Home medication reviewed and reconciled. O/E: Const alert, oriented x3 and no apparent distress HEENT head/scalp atraumatic, moist oral mucous membranes and oropharynx normal Head and Scalp: normocephalic Eyes PERRL, EOMs intact bilaterally and conjunctivae normal Neck no lymphadenopathy, supple and no JVD Resp normal respiratory effort, no retractions, no use of accessory muscles and clear to auscultation bilaterally Cardio regular rate, regular rhythm, no murmurs and no JVD GI normal to inspection, nondistended, normoactive bowel sounds, soft to palpation and non-tender Extremity external fixator over RLE Skin no rashes or lesions noted, no wounds and skin turgor normal Neuro CN's II-XII intact bilaterally Psych affect normal Plan is for discharge today. Rest as per Raghavendra Duke PA-C's note which I reviewed and endorsed. Visit Charges Inpatient E&M: 11673 Disch Hosp
[2021-04-12 13:44] VITALS: BP 132/93; PULSE 62; RESP 16; TEMP 36.6; O2SAT 100
== END 2021-04-12 15:27 | DRG 774 ==
LOC: ED 20:47 → MS3 04-09 07:59
PROVIDERS: Admitting Provider Hospitalist; Emergency Provider Emergency Medicine; Visit Provider Student in an Organized Health Care Education/Training Program
DX: F10.20 Alcohol dependence, uncomplicated (principal); F14.10 Cocaine abuse, uncomplicated; F17.200 Nicotine dependence, unspecified, uncomplicated; F41.8 Other specified anxiety disorders; F12.10 Cannabis abuse, uncomplicated; Z79.899 Other long term (current) drug therapy; L08.9 Local infection of the skin and subcutaneous tissue, unspecified; Z23 Encounter for immunization; Z99.3 Dependence on wheelchair
CPT/HCPCS: 80048; 80307; 82077; 85025; 96372; 97802; 99218; 99284; 90686; A4216; G0378